=== PATIENT | female | born 1975 | race Caucasian/White ===

== ENCOUNTER 2021-04-21 14:42 | Outpatient (CLI) | payer MEDICARE | END 2021-04-21 14:43 | disposition home or self-care (01) | LOC: CSHMRI 14:42 | PROVIDERS: ATTEND Psychiatry & Neurology Neurology | DX: G62.89 Other specified polyneuropathies (principal); Z98.890 Other specified postprocedural states; M47.816 Spondylosis without myelopathy or radiculopathy, lumbar region | CPT/HCPCS: 72158 ==